=== PATIENT | female | born 1990 | race Caucasian/White ===

== ENCOUNTER 2023-11-12 09:23 | Outpatient (OUT) | payer OTHER, SELFPAY ==
--- NOTE | 2023-11-12 09:30 | XR_ITS ---
The [address] [address] Patient Name: DEDE LAWRENCE MRN: [id number] date: 1990 Sex: F Assigned Patient Location: [facility] Current Patient Location: [facility] Accession/Order Number: [id number] Exam Date: 11/12/2023 09:38 Report Date: 11/12/2023 09:58 At the request of: PETER BRANDT Procedure: XR chest 2V EXAMINATION: XR chest 2V HISTORY: positive Quentiferon gold TB test Z11.1 , chest pain COMPARISON: No relevant comparison available. FINDINGS: LUNGS: No significant pulmonary parenchymal abnormalities. VASCULATURE: No increased pulmonary vasculature. PLEURA: No pneumothorax, effusion, or pleural thickening. CARDIAC: No cardiomegaly or cardiac silhouette abnormality. MEDIASTINUM: No visible mass or adenopathy. BONES: No fracture or visible bone lesion. OTHER: Negative. XR/XR chest 2V IMPRESSION: 1. Clear lungs. No abnormal or suspicious findings. Electronically authenticated by: YADIEL HARRIS Date: 11/12/2023 09:58
== END 2023-11-12 09:24 | disposition home or self-care (01) ==
LOC: RAD 09:26
PROVIDERS: Visit Provider Nurse Practitioner Primary Care
DX: R76.11 Nonspecific reaction to tuberculin skin test without active tuberculosis (principal)
CPT/HCPCS: 71046

== ENCOUNTER 2023-12-17 18:16 | Emergency (ER) | payer OTHER, SELFPAY ==
[2023-12-17 18:30] VITALS: BP 108/63; PULSE 79; TEMP 36.9; O2SAT 98; BMI 20.4
--- NOTE | 2023-12-17 20:13 | ED.GENADUL1 ---
HPI HPI - General Adult General Chief complaint: Skin/Abscess/Foreign Body Stated complaint: infection on hip Time Seen by Provider: 12/17/23 19:57 History of Present Illness HPI narrative: Patient is a 33-year-old female who presents to the emergency department for pain, redness and swelling to the left hip that has been present for the last 3 days. She states today she was feeling achy and had some vomiting. No objective fevers. She is not concerned for . She has not had any drainage from the area. Related Data Previous Rx's ?Medication ?Instructions ?Recorded clindamycin HCl 150 mg capsule 300 mg (2 x 150 mg) PO Q6H 10 days 12/17/23 #80 caps hydrocodone 5 mg-acetaminophen 325 1 tab PO Q6H PRN pain 3 days #12 12/17/23 mg tablet tabs ondansetron 4 mg disintegrating 4 mg PO Q6H PRN nausea and 12/17/23 tablet vomiting #12 tabs Allergies Allergy/AdvReac Type Severity Reaction Status Date / Time aripiprazole [From Abilify] Allergy Severe Verified 12/17/23 18:34 nitrofurantoin Allergy Severe Verified 12/17/23 18:34 [From Macrobid] sulfamethoxazole Allergy Severe Verified 12/17/23 18:34 [From Bactrim] trimethoprim [From Bactrim] Allergy Severe Verified 12/17/23 18:34 Opioid HPI Opioid Management Most Recent Opioid Data: No Data to Display Review of Systems ROS Constitutional Denies: fever or chills Ears, nose, mouth, and throat Denies: throat pain or nasal congestion Respiratory Denies: shortness of breath Gastrointestinal Reports: nausea and vomiting; Denies: diarrhea Musculoskeletal Denies: back pain or neck pain Integumentary/Breast Reports: redness, skin pain and skin tenderness; Denies: rash Endocrine Denies: excessive urination Hematologic/Lymphatic Denies: easy bruising or easy bleeding Exam Narrative Exam Narrative: Gen.: Awake, alert, in no distress Head: Normocephalic, atraumatic ENT: Moist mucous membranes Respiratory: No respiratory distress Extremities: Moves extremities equally Psych: Normal mood and affect Neuro: No focal neuro deficit Skin: Warm, dry, intact; Patient with a 3 x 1 cm area of induration to the left anterior thigh, just distal to the groin. No fluctuance. Patient is noted to have approximately 10 cm of blanching erythema surrounding of the induration. Constitutional Vital Signs, click to edit/add: Last Vital Signs Temp 98.5 F 12/17/23 18:30 Pulse 79 12/17/23 18:30 Resp 16 12/17/23 18:30 BP 108/63 12/17/23 18:30 Pulse Ox 98 12/17/23 18:30 O2 Del Method Room Air 12/17/23 18:30 Course Vital Signs Vital signs: Vital Signs Temperature 98.5 F 12/17/23 18:30 Pulse Rate 79 12/17/23 18:30 Respiratory Rate 16 12/17/23 18:30 Blood Pressure 108/63 12/17/23 18:30 Pulse Oximetry 98 12/17/23 18:30 Oxygen Delivery Method Room Air 12/17/23 18:30 Temperature 98.5 F 12/17/23 18:30 Pulse Rate 79 12/17/23 18:30 Respiratory Rate 16 12/17/23 18:30 Blood Pressure 108/63 12/17/23 18:30 Pulse Oximetry 98 12/17/23 18:30 Oxygen Delivery Method Room Air 12/17/23 18:30 Medical Decision Making MDM Narrative Medical decision making narrative: Exam is consistent with likely folliculitis that has become secondarily infected to cellulitis. No significant abscess at this time. No indication for incision and drainage. Patient with multiple antibiotic allergies, she is placed on clindamycin, short course of analgesics and Zofran. She appears well-hydrated and nontoxic with stable vital signs in the ER. She is encouraged to use warm compresses. Follow-up PCP and return to the ER if symptoms change or worsen Medical Records Medical records reviewed: Yes I reviewed the patient's medical records Discharge Plan Discharge Stand Alone Forms: Portal Instructions Chief Complaint: Skin/Abscess/Foreign Body Clinical Impression: Cellulitis Patient Disposition: Home, Self-Care Time of Disposition Decision: 20:09 Condition: Good Prescriptions / Home Meds: New hydrocodone-acetaminophen 5-325 mg tablet 1 tab PO Q6H PRN (Reason: pain) 3 Days Qty: 12 0RF Rx Instructions: DX: L03.90 clindamycin HCl 150 mg capsule 300 mg PO Q6H 10 Days Qty: 80 0RF ondansetron 4 mg tablet,disintegrating 4 mg PO Q6H PRN (Reason: nausea and vomiting) Qty: 12 0RF Print Language: Slovak Instructions: Cellulitis (ED), Warm Compress or Soak (ED) Referrals: Physician,Non-Staff, MD [Primary Care Provider] - 1 week Discharge Date/Time: 12/17/23 20:28
[2023-12-17] MEDS: CLINDAMYCIN HCL 150 MG CAPSULE 300 MG PO (20:22)
[2023-12-17] MEDS: HYDROCODONE/ACET 5-325 MG TABLET 1 TAB PO (20:23)
[2023-12-17] MEDS: ONDANSETRON 4 MG RAPDIS TABLET SL (20:23)
== END 2023-12-17 20:28 | disposition home or self-care (01) ==
PROVIDERS: Emergency Provider Emergency Medicine
DX: L03.116 Cellulitis of left lower limb (principal)
CPT/HCPCS: 99284

== ENCOUNTER 2025-07-21 13:45 | Emergency (ER) | payer SELFPAY ==
--- OUTSIDE RECORDS SUMMARY | 2025-07-10 07:45 | XMS_ITS ---
Author Organization [facility] vices Address [address] [place], [place] [id number] Care Team Providers Care Ice Cream Dispenser Name Role Phone Manisha Carson Primary Care Provider Silvia Naylor [phone] REASON FOR VISIT CANCEL- Rest #11-DL, #12-MOD Social History Sex Assigned At : Social History Observation Description Sex Assigned At Female Encounters Encounter Location Date Provider Diagnosis [facility] [address] [place] [address] [phone] 07/10/2025 Silvia Naylor Plan Of Treatment Next Appt Details Provider Name:Silvia Naylor , 09/06/2025 02:30:00 PM, [address] [place] [address], [phone], Provider Name:Silvia Naylor , 11/02/2025 10:45:00 AM, [address] [place] [address], [phone], Progress Notes * Maribel LAWRENCE SDOB: 2 (35 yo F)Acc No.[id number]:07/10/2025 Patient:?Maribel Lawrence :?Silvia Naylor DDSDOB:1990???Age:35 Y ???Sex:FemaleDate:07/10/2025Phone:[phone]:[address], [id number]:Manisha Carson Subjective: * Chief Complaints: * C ANCEL- Rest #11-DL, #12-MOD Billing Information: * Procedure Codes: * Electronic signature of Silvia Naylor DDS on 07/21/2025 at 01:56 PM ESTSign off status: Pending * Provider: Betzaida Naylor DDS Date: 09/10/2024 Generated for Printing/Faxing/eTransmitting on:?07/21/2025 01:56 PM EST
[2025-07-21 13:53] VITALS: BP 97/57; PULSE 64; TEMP 37.2; BMI 23.1
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
--- NOTE | 2025-07-21 14:01 | XR_ITS ---
The [address] [address] Patient Name: DEDE LAWRENCE MRN: [id number] date: 1990 Sex: F Assigned Patient Location: ER Current Patient Location: ER Accession/Order Number: [id number] Exam Date: 07/21/2025 14:35 Report Date: 07/21/2025 15:05 At the request of: VERITO GRANDE MD Procedure: XR hip RT min 2V XR hip RT min 2V 07/21/2025 2:43 PM SIGNS AND SYMPTOMS: ^pain to right hip joint, especially w/movement PROTOCOL: Frontal and frog-leg views of the right hip COMPARISON: None FINDINGS: The joint space is preserved. There is no fracture or dislocation. The right hemipelvis is grossly intact. Vascular calcifications are present in the pelvis. XR/XR hip RT min 2V IMPRESSION: No acute bony injury or significant degenerative change. Impression dictated by: Nicola Mcdermott M.D. 07/21/2025 3:05 PM Dictation Location: [place] [address] Electronically authenticated by: [id number] Y Date: 07/21/2025 15:05
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
== END 2025-07-21 15:57 | disposition home or self-care (01) ==
PROVIDERS: Emergency Provider Emergency Medicine
DX: M25.551 Pain in right hip (principal); K03.81 Cracked tooth; Z91.410 Personal history of adult physical and sexual abuse; Z91.42 Personal history of forced labor or sexual exploitation
CPT/HCPCS: 73502; 99283